=== PATIENT | male | born 1930 | race Caucasian/White ===

== ENCOUNTER 2017-09-14 06:30 | Day surgery (SDC) | payer MEDICARE, BC ==
[~2017-09-14 06:30] MED LIST: ACETAZOLAMIDE 250 MG PO ONE
[2017-09-14] MEDS: PHENYLEPHRINE HCL 10% OPHTHAL SOL ONE ×2 (06:48→07:07)
[2017-09-14] MEDS: PROPARACAINE HCL 0.5% OPHTHALMIC SOL ONE ×3 (06:48→08:03)
[2017-09-14] MEDS: KETOROLAC 0.5% OPTH 60 DROP SOL ONE ×2 (06:49→07:08)
[2017-09-14] MEDS: CYCLOPENTOLATE 1% SOL ONE ×2 (06:49→07:08)
[2017-09-14] MEDS ORDERED: MIDAZOLAM 2 MG/2 ML SOL ONE (07:11)
[2017-09-14] MEDS ORDERED: POVIDONE IODINE 5% SOL ONE (07:58)
[2017-09-14] MEDS ORDERED: LIDOCAINE HCL 1% MPF 30 SOL ONE (07:58)
[2017-09-14] MEDS ORDERED: BSS 500 ML 500 ML IR ONE (07:58)
[2017-09-14 09:03] VITALS: BP 147/70; PULSE 49; RESP 20; TEMP 97.9; O2SAT 95
== END 2017-09-14 09:00 | disposition home or self-care (01) | DRG 125 ==
LOC: SURG 06:30
PROVIDERS: ATTEND Ophthalmology
DX: H25.9 Unspecified age-related cataract (principal); H57.03 Miosis
CPT/HCPCS: J2250; A9270-GY; J2001